=== PATIENT | female | born 1945 | race Hispanic/Latino ===

== ENCOUNTER 2023-03-15 19:28 | Inpatient (IN) | payer MEDICARE, BC ==
[~2023-03-15 19:28] MED LIST: Iopamidol 370 76% 50 ML VIAL FS ONE
[2023-03-15 19:50] LABS: #Eosinphils 0.1 10x3/uL (0.0-0.5); #Monocytes 0.3 10x3/uL (0.0-1.1); #Neutrophils 7.7 10x3/uL (1.5-8.4); %Basophils 0.2 % (0.0-2.0); %Eosinophils 1.1 % (0.0-6.0); %Lymphocytes 24.4 % (18.0-47.0); %Monocytes 2.3 % (0.0-10.0); %Neutrophils 71.1 % (40.0-75.0); Hemoglobin 12.7 g/dL (12.0-15.5); Platelet Count 215 10x3/uL (150-450); RBC Distribution Width 12.6 % (11.5-14.5); Red Blood Cell (RBC) Count 3.97 10x6/uL (3.90-5.03); White Blood Cell (WBC) Count 10.8 10x3/uL (3.5-10.5)
[2023-03-15 20:08] LABS: ALT (SGPT) 14 U/L (8-55); AST (SGOT) 17 U/L (5-34); Albumin 3.8 g/dL (3.4-4.8); Alkaline Phosphatase 109 U/L (40-110); Anion Gap 16 mmol/L (10-20); BUN (Urea Nitrogen) 37 mg/dL (9.8-20.1); Bilirubin, Total 0.3 mg/dL (0.2-1.2); CK (CPK) 112 U/L (29-168); Calc. Creatinine Clearance 0 mL/min (70-130); Carbon Dioxide 17 mmol/L (23-31); Chloride 110 mmol/L (98-107); Estimated GFR 25; Globulin 2.7 g/dL (2.4-3.5); Glucose 232 mg/dL (83-110); Potassium 4.4 mmol/L (3.5-5.1); Protein, Total 6.5 g/dL (5.8-8.1); Sodium 139 mmol/L (136-145)
[2023-03-15 20:24] LABS: Actual Bicarbonate (HCO3v) 16.9 mEq/L (22-28); Base Excess -9.2 mEq/L (-2 - +2); Calcium, Ionized (venous) 1.25 mmol/L (1.16-1.32); Chloride (VBG) 105 mmol/L (98-106); Critical Notified By: CP.PH; Hematocrit-VBG 39 % (36.0-47.0); Hemoglobin (Hb) 13.4 g/dL (11.7-16.1); Puncture Site Other Site; RapidComm Collect By LAB.YY; Sodium 144.5 mmol/L (133-146); pH (venous) 7.271 (7.32-7.43)
[2023-03-15 22:54] LABS: Lactic Acid 1.6 mmol/L (0.5-2.2)
[2023-03-15] MEDS ORDERED: Ondansetron PF 4 MG/2 ML Vial IVP PRN (23:23)
[2023-03-15] MEDS ORDERED: Dextrose 5% in Water 1,000 ML IV PRN (23:23)
[2023-03-15] MEDS ORDERED: Dextrose 50% Abboject 50 ML SYRINGE SLOW IVP PRN (23:23)
[2023-03-15] MEDS ORDERED: hydrALAZINE 20 MG/ML VIAL SLOW IVP PRN (23:28)
[2023-03-15] MEDS ORDERED: Morphine 4 MG/ML VIAL SLOW IVP PRN (23:29)
[2023-03-15] MEDS ORDERED: Famotidine/PF 20 mg/2ml Vial ONE (23:34)
[2023-03-15 23:42] VITALS: BMI 28.3
[2023-03-15] MEDS ORDERED: Famotidine/PF 20 mg/2ml Vial SLOW IVP SCH (23:45)
[2023-03-15] MEDS: Lactated Ringer's 1,000 ML IV SCH (23:51)
[2023-03-15] MEDS ORDERED: Morphine 2 MG/ML VIAL SLOW IVP PRN (23:58)
[2023-03-15] MEDS ORDERED: Lactated Ringer's 1,000 ML IV SCH (23:59)
[2023-03-16] MEDS: HumaLOG 300 UNITS/3 ML VIAL SC PRN (00:20)
[2023-03-16 00:27] LABS: Bilirubin Neg (Negative); Blood, Urine Negative (Negative); Clarity Clear (Clear); Glucose, Urine (Dipstick) Normal (Negative); Ketone, Urine Negative (Negative); Leukocyte 25 (Negative); Nitrite Negative (Negative); Protein, Urine (Dipstick) Negative (Neg-Trace); Urobilinogen Normal mg/dL (Less than 2)
[2023-03-16 00:38] LABS: Bacteria/HPF None Seen HPF (None Seen); RBC/HPF None Seen HPF (0-3); Squamous Epithelial None Seen HPF (0-3); WBC/HPF 0-3 HPF (0-3)
[2023-03-16 04:10] LABS: #Basophils 0.1 10x3/uL (0.0-0.2); #Eosinphils 0.1 10x3/uL (0.0-0.5); #Monocytes 0.5 10x3/uL (0.0-1.1); #Neutrophils 16.7 10x3/uL (1.5-8.4); %Basophils 0.3 % (0.0-2.0); %Eosinophils 0.3 % (0.0-6.0); %Lymphocytes 7.3 % (18.0-47.0); %Monocytes 2.8 % (0.0-10.0); %Neutrophils 88.7 % (40.0-75.0); Hemoglobin 10.5 g/dL (12.0-15.5); Mean Corpuscular HGB CONC 33.9 g/dL (32.0-36.0); Mean Corpuscular Hemoglobin 32.2 pg (27.0-33.0); Mean Corpuscular Volume 95.1 fl (81.6-98.3); Mean Platelet Volume 10.1 fl (7.4-10.4); Platelet Count 170 10x3/uL (150-450); RBC Distribution Width 12.7 % (11.5-14.5); Red Blood Cell (RBC) Count 3.26 10x6/uL (3.90-5.03); White Blood Cell (WBC) Count 18.8 10x3/uL (3.5-10.5)
[2023-03-16 04:19] LABS: Anion Gap 14 mmol/L (10-20); BUN (Urea Nitrogen) 35 mg/dL (9.8-20.1); Calc. Creatinine Clearance 31 mL/min (70-130); Calcium 8.5 mg/dL (7.8-10.44); Carbon Dioxide 18 mmol/L (23-31); Chloride 112 mmol/L (98-107); Estimated GFR 29; Glucose 135 mg/dL (83-110); Magnesium 1.7 mg/dL (1.6-2.6); Potassium 4.5 mmol/L (3.5-5.1); Sodium 139 mmol/L (136-145)
[2023-03-16 04:45] LABS: CKMB 1.8 ng/mL (0-6.6)
[2023-03-16] MEDS ORDERED: metroNIDAZOLE 500 MG/100 ML BAG ONE (15:58)
[2023-03-16] MEDS: metroNIDAZOLE 500 MG in Premix Bag 1 BAG IVPB SCH ×2 (16:03→21:04)
[2023-03-16] MEDS: Lactated Ringer's 1,000 ML IV SCH (16:38)
[2023-03-16] MEDS: Famotidine/PF 20 mg/2ml Vial SLOW IVP SCH (21:04)
[2023-03-17] MEDS: Lactated Ringer's 1,000 ML IV SCH ×2 (03:33→08:16)
[2023-03-17] MEDS: metroNIDAZOLE 500 MG in Premix Bag 1 BAG IVPB SCH ×3 (05:21→22:00)
[2023-03-17 05:41] LABS: #Basophils 0.1 10x3/uL (0.0-0.2); #Eosinphils 0.4 10x3/uL (0.0-0.5); #Monocytes 0.4 10x3/uL (0.0-1.1); #Neutrophils 5.1 10x3/uL (1.5-8.4); %Basophils 0.8 % (0.0-2.0); %Eosinophils 4.7 % (0.0-6.0); %Lymphocytes 21.9 % (18.0-47.0); %Monocytes 5.4 % (0.0-10.0); %Neutrophils 66.8 % (40.0-75.0); Hemoglobin 9.5 g/dL (12.0-15.5); Mean Corpuscular HGB CONC 33.6 g/dL (32.0-36.0); Mean Corpuscular Hemoglobin 31.8 pg (27.0-33.0); Mean Corpuscular Volume 94.6 fl (81.6-98.3); Mean Platelet Volume 10.5 fl (7.4-10.4); Platelet Count 155 10x3/uL (150-450); RBC Distribution Width 12.9 % (11.5-14.5); Red Blood Cell (RBC) Count 2.99 10x6/uL (3.90-5.03); White Blood Cell (WBC) Count 7.6 10x3/uL (3.5-10.5)
[2023-03-17 05:59] LABS: ALT (SGPT) 11 U/L (8-55); AST (SGOT) 18 U/L (5-34); Albumin 3.3 g/dL (3.4-4.8); Alkaline Phosphatase 79 U/L (40-110); Anion Gap 12 mmol/L (10-20); BUN (Urea Nitrogen) 18 mg/dL (9.8-20.1); Bilirubin, Total 0.4 mg/dL (0.2-1.2); Calc. Creatinine Clearance 38 mL/min (70-130); Calcium 9.4 mg/dL (7.8-10.44); Carbon Dioxide 21 mmol/L (23-31); Chloride 114 mmol/L (98-107); Estimated GFR 37; Globulin 2.4 g/dL (2.4-3.5); Glucose 122 mg/dL (83-110); Potassium 4.4 mmol/L (3.5-5.1); Protein, Total 5.7 g/dL (5.8-8.1); Sodium 143 mmol/L (136-145)
[2023-03-17 11:48] LABS: Campy jejuni + coli by PCR Negative (Negative); STEC Shiga Toxin 1+2 Negative (Negative); Salmonella spp. by PCR Negative (Negative); Shigella spp + EIEC by PCR Negative (Negative)
[2023-03-17] MEDS: HumaLOG 300 UNITS/3 ML VIAL SC PRN ×2 (14:38→22:04)
[2023-03-17] MEDS: Famotidine/PF 20 mg/2ml Vial SLOW IVP SCH (22:04)
[2023-03-18 04:40] LABS: #Basophils 0.1 10x3/uL (0.0-0.2); #Eosinphils 0.4 10x3/uL (0.0-0.5); #Monocytes 0.6 10x3/uL (0.0-1.1); #Neutrophils 4.5 10x3/uL (1.5-8.4); %Basophils 0.7 % (0.0-2.0); %Lymphocytes 23.4 % (18.0-47.0); %Monocytes 8.4 % (0.0-10.0); %Neutrophils 61.1 % (40.0-75.0); Hemoglobin 9.6 g/dL (12.0-15.5); Mean Corpuscular HGB CONC 33.3 g/dL (32.0-36.0); Mean Corpuscular Hemoglobin 31.7 pg (27.0-33.0); Mean Platelet Volume 10.3 fl (7.4-10.4); Platelet Count 154 10x3/uL (150-450); RBC Distribution Width 12.7 % (11.5-14.5); Red Blood Cell (RBC) Count 3.03 10x6/uL (3.90-5.03); White Blood Cell (WBC) Count 7.4 10x3/uL (3.5-10.5)
[2023-03-18 04:44] LABS: ALT (SGPT) 11 U/L (8-55); AST (SGOT) 16 U/L (5-34); Albumin 3.4 g/dL (3.4-4.8); Alkaline Phosphatase 87 U/L (40-110); Anion Gap 16 mmol/L (10-20); BUN (Urea Nitrogen) 14 mg/dL (9.8-20.1); Bilirubin, Total 0.3 mg/dL (0.2-1.2); Calc. Creatinine Clearance 40 mL/min (70-130); Calcium 9.8 mg/dL (7.8-10.44); Carbon Dioxide 19 mmol/L (23-31); Chloride 111 mmol/L (98-107); Estimated GFR 40; Globulin 2.4 g/dL (2.4-3.5); Glucose 143 mg/dL (83-110); Potassium 4.1 mmol/L (3.5-5.1); Protein, Total 5.8 g/dL (5.8-8.1); Sodium 142 mmol/L (136-145)
[2023-03-18] MEDS: Lactated Ringer's 1,000 ML IV SCH (05:52)
[2023-03-18] MEDS: metroNIDAZOLE 500 MG in Premix Bag 1 BAG IVPB SCH (05:52)
[2023-03-18] MEDS ORDERED: Sodium Bicarbonate Tab 325 MG TAB PO SCH (08:00)
[2023-03-18 12:14] VITALS: BP 171/73; TEMP 98.1
== END 2023-03-18 12:40 | disposition home or self-care (01) | DRG 392 ==
LOC: CSHERS 19:28 → EEVIPCON 23:11 → CSHERHOLD 23:11 → CSHTELE 03-16 15:37
PROVIDERS: ADMIT Student in an Organized Health Care Education/Training Program; ATTEND Family Medicine
DX: A09 Infectious gastroenteritis and colitis, unspecified (principal); E87.20 Acidosis, unspecified; N17.9 Acute kidney failure, unspecified; E78.5 Hyperlipidemia, unspecified; E11.22 Type 2 diabetes mellitus with diabetic chronic kidney disease; N18.32 Chronic kidney disease, stage 3b; I12.9 Hypertensive chronic kidney disease with stage 1 through stage 4 chronic kidney disease, or unspecified chronic kidney disease; Z90.49 Acquired absence of other specified parts of digestive tract; Z98.890 Other specified postprocedural states; Z98.51 Tubal ligation status
CPT/HCPCS: 36415; 36416; 71045; 74174; 74176; 80048; 80053; 81001; 82550; 82553; 82805; 83605; 83630; 83735; 84145; 84443; 84484; 85025; 87040; 87324; 87449; 87505; 93005; 94760; J1650; J1815; J1956; J2405; J7120; Q9967; S0028